=== PATIENT | female | born 1990 | race Caucasian/White ===

== ENCOUNTER 2021-02-20 01:10 | Emergency (ER) | payer OTHER ==
[~2021-02-20] VITALS: Ht 160 cm; Wt 61.6 kg
[2021-02-20] MEDS ORDERED: BACITRACIN 0.9 GM PACKET OINTMENT TP ONE (01:30)
[2021-02-20] MEDS ORDERED: PERTUSS(ACELL),DIPH,TET VAC/PF 0.5 ML SYRINGE IM. ONE (01:45)
[2021-02-20 03:47] VITALS: BP 106/77
== END 2021-02-20 04:21 | disposition home or self-care (01) ==
LOC: EMS 01:15
DX: S50.312A Abrasion of left elbow, initial encounter (principal); S80.212A Abrasion, left knee, initial encounter; R51.9 Headache, unspecified; Y04.2XXA Assault by strike against or bumped into by another person, initial encounter; Y93.89 Activity, other specified; Y92.89 Other specified places as the place of occurrence of the external cause; Y99.8 Other external cause status
CPT/HCPCS: 70450; 72125; 90471; 90715; 99285

== ENCOUNTER 2023-07-24 18:39 | Emergency (ER) | payer OTHER ==
[~2023-07-24] VITALS: Ht 157.5 cm; Wt 70.9 kg
[2023-07-24 18:45] VITALS: BP 132/76; PULSE 94; RESP 16; TEMP 98.2
[2023-07-24] MEDS ORDERED: METH-659 PO (22:12)
[2023-07-24] MEDS ORDERED: IBUP-1554 PO (22:12)
[2023-07-24] MEDS ORDERED: ACET-2080 PO (22:12)
== END 2023-07-24 22:41 | disposition home or self-care (01) ==
LOC: EMS 18:39
DX: S13.4XXA Sprain of ligaments of cervical spine, initial encounter (principal); X58.XXXA Exposure to other specified factors, initial encounter; Y93.89 Activity, other specified; Y92.89 Other specified places as the place of occurrence of the external cause; Y99.8 Other external cause status
CPT/HCPCS: 72040; 99283

== ENCOUNTER 2023-09-12 16:42 | Emergency (ER) | payer OTHER ==
[~2023-09-12] VITALS: Ht 157.5 cm; Wt 71.4 kg
[~2023-09-12 16:42] MED LIST: ACET-2080 PO; IBUP-1554 PO; METH-659 PO
[2023-09-12 16:51] LABS: COVID AG,FIA SOURCE NASAL SWAB
[2023-09-12 17:26] LABS: INFLUENZA TYPE A NEGATIVE FOR TYPE A (NEGATIVE); INFLUENZA TYPE B NEGATIVE FOR TYPE B (NEGATIVE); SARS-COV2 (COVID) ANTIGEN,FIA Negative (Negative)
[2023-09-12] MEDS ORDERED: ACETAMINOPHEN 325 MG TABLET PO ONE (20:00)
[2023-09-12] MEDS ORDERED: ALBUTEROL SULFATE HFA 90 MCG/PUFF 8 GM INHALER IH ONE (20:30)
[2023-09-12] MEDS ORDERED: ALBUTEROL SULFATE 2.5 MG/0.5 ML NEB SOLUTION NEB ONE (20:30)
[2023-09-12] MEDS ORDERED: IPRATROPIUM BROMIDE 0.5 MG/2.5 ML NEB SOLUTION NEB ONE (20:30)
[2023-09-12 20:46] VITALS: PULSE 85; RESP 16; O2SAT 99
[2023-09-12 21:01] VITALS: PULSE 97; RESP 16; O2SAT 100
[2023-09-12 22:58] VITALS: BP 119/67; PULSE 85; RESP 16; TEMP 99.5
== END 2023-09-12 23:03 | disposition home or self-care (01) ==
LOC: EMS 16:42
DX: J06.9 Acute upper respiratory infection, unspecified (principal); J98.01 Acute bronchospasm; Z20.822 Contact with and (suspected) exposure to COVID-19
CPT/HCPCS: 99285; 71046; 87426; 87804; 94640; J3535; J7613

== ENCOUNTER 2023-10-22 19:21 | Emergency (ER) | payer OTHER ==
[~2023-10-22] VITALS: Ht 157.5 cm; Wt 72.7 kg
[2023-10-22 19:44] VITALS: BP 126/94; PULSE 96; RESP 16; TEMP 98.9
== END 2023-10-22 21:33 | disposition home or self-care (01) ==
LOC: EMS 19:23
DX: S93.402A Sprain of unspecified ligament of left ankle, initial encounter (principal); X50.1XXA Overexertion from prolonged static or awkward postures, initial encounter; Y93.89 Activity, other specified; Y92.89 Other specified places as the place of occurrence of the external cause; Y99.8 Other external cause status
CPT/HCPCS: 99284